=== PATIENT | female | born 1995 | race American Indian/Alaskan Native ===

== ENCOUNTER 2018-04-25 08:41 | Inpatient (IN) | payer OTHER ==
[2018-04-25 10:18] LABS: Basophils % (Auto) 0.4 % (0.0-1.8); Eosinophils % (Auto) 0.1 % (0.0-4.3); Hematocrit 39.6 % (30.3-42.9); Hemoglobin 13.8 gm/dl (10.1-14.3); Lymphocytes # (Auto) 1.8 K/mm3 (1.2-5.4); Lymphocytes % (Auto) 16.6 % (13.4-35.0); Mean Corpuscular HGB Conc 35 % (30-34); Mean Corpuscular Hemoglobin 29 pg (28-32); Mean Corpuscular Volume 82 fl (79-97); Monocytes # (Auto) 0.7 K/mm3 (0.0-0.8); Monocytes % (Auto) 6.7 % (0.0-7.3); Platelet Count 349 K/mm3 (140-440); Red Blood Count 4.85 M/mm3 (3.65-5.03); Red Cell Distribution Width 13.7 % (13.2-15.2)
[2018-04-25 10:24] LABS: Bacteria,Urine 1+ /HPF (Negative); Bilirubin,Urine NEG (Negative); Blood,Urine SM (Negative); Color,Urine Amber (Yellow); Mucus,Urine 3+ /HPF; Urobilinogen,Urine < 2.0 mg/dL (<2.0)
[2018-04-25] MEDS ORDERED: PROTONIX IV ONE (10:40)
[2018-04-25] MEDS ORDERED: MORPHINE IV ONE (10:40)
[2018-04-25] MEDS ORDERED: ZOFRAN IV ONE ×2 (10:40→12:19)
--- NOTE | 2018-04-25 10:44 | Emergency Department Report ---
Blank Doc - Documentation Documentation: 22-year-old female currently 12 weeks presents to the hospital complaining of vomiting and epigastric pain. Patient has had problems with intermittent nausea vomiting for the past 2 months. She has had 3 visits to [facility] including yesterday. She is taking Zofran ODT without improvement. She has yet to initiate care. She did have a ultrasound performed at [facility] confirming IUP. No complaints of fever, dysuria, vaginal bleeding, or diarrhea. Focus Exam Epigastric tenderness Coffee-ground emesis noted labs pending IV, D5 NS, zofran, morphine, protonix Midlevel to follow
[2018-04-25 10:48] LABS: Alanine Aminotransferase 23 units/L (7-56); Albumin 3.9 g/dL (3.9-5); BUN/Creatinine Ratio 15; Blood Urea Nitrogen 9 mg/dL (7-17); Hemolysis Index 9; Lipase 64 units/L (13-60)
[2018-04-25] MEDS ORDERED: D5NS 1,000 ML IV SCH ×2 (11:00→14:00)
--- NOTE | 2018-04-25 11:18 | Emergency Department Report ---
ED N/V/D HPI - General Chief complaint: Nausea/Vomiting/Diarrhea Stated complaint: VOMITING Time Seen by Provider: 04/25/18 10:34 Source: patient Mode of arrival: Ambulatory Limitations: No Limitations - History of Present Illness Initial comments: This is a 22-year-old female nontoxic, well nourished in appearance, no acute signs of distress presents to the ED with c/o of nausea and vomiting x2 months. Patient stated that she lost about 35 pounds due to this. Patient stated that when she vomits she develops epigastric pain and is relieved with hunching over. Patient stated she went to [facility] 3 times and has been sent home with Zofran with no relief. Patient stated she was in [facility] yesterday and had normal US IUP report. Patient denies following up with a RESEARCH PROJECT COORDINATOR doctor. Patient denies any abdominal pain, chest pain, back pain, shortness of breathe, headache, stiff neck, dizziness, or urinary symptoms. Patient denies any vaginal bleeding. Patient denies any allergies or PMH. MD complaint: nausea, vomiting -: month(s) (2) Description of Vomiting: other (Coffee-ground emesis) Associated Abdominal Pain: No Radiation: none Pain Scale: 0 Consistency: constant Improves with: none Worsens with: none Associated Symptoms: nausea/vomiting. denies: myalgias, chest pain, cough, diaphoresis, fever/chills, headaches, loss of appetite, malaise, rash, dysuria, shortness of breath, syncope, weakness - Related Data Home Medications Medication Instructions Recorded Confirmed Last Taken Ondansetron [Zofran Odt] 4 mg PO Q8HR 04/25/18 04/25/18 04/24/18 Vit No.130/Iron/Folic 1 each PO DAILY 04/25/18 04/25/18 04/24/18 [ Tablet] Allergies Allergy/AdvReac Type Severity Reaction Status Date / Time No Known Allergies Allergy Verified 04/25/18 11:11 ED Review of Systems ROS: Stated complaint: VOMITING Other details as noted in HPI Constitutional: denies: chills, fever Eyes: denies: eye pain, eye discharge, vision change ENT: denies: ear pain, throat pain Respiratory: denies: cough, shortness of breath, wheezing Cardiovascular: denies: chest pain, palpitations Endocrine: no symptoms reported Gastrointestinal: nausea, vomiting. denies: abdominal pain, diarrhea Genitourinary: denies: urgency, dysuria, discharge Musculoskeletal: denies: back pain, joint swelling, arthralgia Skin: denies: rash, lesions Neurological: denies: headache, weakness, paresthesias Psychiatric: denies: anxiety, depression Hematological/Lymphatic: denies: easy bleeding, easy bruising ED Past Medical Hx - Past Medical History Previous Medical History?: Yes Additional medical history: Vaginal delivery x 1 - Surgical History Past Surgical History?: No - Social History Smoking Status: Never Smoker Substance Use Type: Prescribed - Medications Home Medications: Home Medications Medication Instructions Recorded Confirmed Last Taken Type Ondansetron [Zofran Odt] 4 mg PO Q8HR 04/25/18 04/25/18 04/24/18 History Vit No.130/Iron/Folic 1 each PO DAILY 04/25/18 04/25/18 04/24/18 History [ Tablet] ED Physical Exam - General Limitations: No Limitations General appearance: alert, in no apparent distress - Head Head exam: Present: atraumatic, normocephalic - Eye Eye exam: Present: normal appearance Pupils: Present: normal accommodation - ENT ENT exam: Present: normal exam, mucous membranes moist - Neck Neck exam: Present: normal inspection, full ROM - Respiratory Respiratory exam: Present: normal lung sounds bilaterally. Absent: respiratory distress, wheezes, rales, rhonchi, stridor, chest wall tenderness, accessory muscle use, decreased breath sounds, prolonged expiratory - Cardiovascular Cardiovascular Exam: Present: regular rate, normal rhythm, normal heart sounds. Absent: bradycardia, tachycardia, irregular rhythm, systolic murmur, diastolic murmur, rubs, gallop - GI/Abdominal GI/Abdominal exam: Present: soft, normal bowel sounds. Absent: distended, tenderness, guarding, rebound, rigid, diminished bowel sounds - Rectal Rectal exam: Present: deferred - Extremities Exam Extremities exam: Present: normal inspection, full ROM, normal capillary refill - Back Exam Back exam: Present: normal inspection, full ROM. Absent: tenderness, CVA tenderness (R), CVA tenderness (L), muscle spasm, paraspinal tenderness, vertebral tenderness, rash noted - Neurological Exam Neurological exam: Present: alert, oriented X3, normal gait - Psychiatric Psychiatric exam: Present: normal affect, normal mood - Skin Skin exam: Present: warm, dry, intact, normal color. Absent: rash ED Course Vital Signs 04/25/18 04/25/18 04/25/18 09:30 11:12 16:27 Temperature 97.5 F L Pulse Rate 60 57 L Respiratory 22 20 16 Rate Blood Pressure 138/84 Blood Pressure 145/82 [Left] O2 Sat by Pulse 100 96 Oximetry - Reevaluation(s) Reevaluation #1: 04/25/18 11:18 Patient is speaking in full sentences with no signs of distress noted. - Consultations Consultation #1: 04/25/18 11:18 Patient has been consulted with Dr. Whaley about patient history, physical exam, and labs and examined and screened patient and agrees to ED plan of care. Consultation #2: 04/25/18 13:36 Dr. Mullins from [facility] was consulted and accepts patient to her services. ED Medical Decision Making - Lab Data Result diagrams: 04/25/18 09:52 04/25/18 09:52 - Medical Decision Making This is a 22-year-old female that presents with hyperemesis . Patient is stable was examined by me. Upon examination there is no abdominal tenderness or abdominal distention. Patient received 2 L of D5W w NS and Zofran and reglan which symptoms has not resolved. Patient also received K+ 20 meq IV. Patient is admitted with [facility] for further evaluation and treatment. . At time of admission, the patient does not seem toxic or ill in appearance. No acute signs of distress noted. Patient agrees to admission treatment plan of care. No further questions noted by the patient. Critical care attestation.: If time is entered above; I have spent that time in minutes in the direct care of this critically ill patient, excluding procedure time. ED Disposition Clinical Impression: Hyperemesis gravidarum Disposition: OP ADMIT IP TO THIS HOSP Is pt being admited?: Yes Condition: Stable Referrals: PRIMARY CARE, [Primary Care Provider] - 3-5 Days
[2018-04-25] MEDS ORDERED: REGLAN IV ONE (12:19)
[2018-04-25] MEDS ORDERED: PHENERGAN PR ONE (13:39)
[2018-04-25] MEDS ORDERED: ROCEPHIN/NS 1 GM/50 ML 1 GM/50 ML BAG IV ONE (13:41)
[2018-04-25] MEDS ORDERED: cefTRIAXone 1 GM in NACL 0.9% 20 ML IV ONE (14:00)
--- NOTE | 2018-04-25 14:44 | Ultrasound Report ---
ULTRASOUND OB LESS THAN 14 WEEKS - TRANSABDOMINAL INDICATION: Nausea, vomiting. Evaluate for IUP. COMPARISON: None similar at this institution. FINDINGS: Transabdominal pelvic sonography performed in this patient with estimated menstrual age of 11 weeks and 6 days per recent ultrasound performed at [facility]. It demonstrates an anteverted, gravid uterus estimated at 14 x 7.3 x 9.2 cm with a single, viable intrauterine gestation with heart rate of 155 beats per minute. Mean crown-rump length of 6.6 cm corresponds to 12 weeks and 6 days. Placenta appears anterior. body/limb movements noted on real-time imaging. No significant pelvic free fluid. Cervical length approximately 2.5 cm, closed. Normal bilateral maternal ovaries, approximately 2.3 x 1.5 x 1.2 cm on the right and 2.4 x 1.3 x 2.8 cm on the left. CONCLUSION: 1. Single, live intrauterine gestation with an ultrasound estimated age of 12 weeks and 6 days and SHAN of 11/01/2018. 2. Other findings, as above. Thank you for the opportunity to participate in this patient's care.
[2018-04-25] MEDS ORDERED: NACL 0.9% 250ML 250 ML ONE ×3 (15:33→18:05)
[2018-04-25] MEDS: KCL 10MEQ/100ML 10 MEQ/100 ML BAG IV SCH ×2 (15:57→17:38)
[2018-04-25] MEDS ORDERED: NACL 0.9% 250ML 250 ML IV ONE ×2 (17:00→17:40)
[2018-04-25] MEDS ORDERED: PEPCID IV ONE (19:34)
[2018-04-25] MEDS ORDERED: LIDOCAINE VISCOUS 2% PO ONE (19:42)
[2018-04-25] MEDS ORDERED: D5LR 1,000 ML IV SCH (21:18)
[2018-04-25] MEDS ORDERED: ZOFRAN IV PRN (21:18)
--- NOTE | 2018-04-25 22:01 | History and Physical Report ---
History of Present Illness Date of examination: 04/25/18 Date of admission: 04/25/18 19:50 Chief complaint: N/V unresponsive to outpatient management No care History of present illness: This is a 22year-old female IUP@12 weeks with persistent nausea/vomiting for 2months. She been evaluated [place] [facility] [place] times but has not any care. According to ED patient had persistent vomiting after several antiemetic regimens. Past History Past Medical History: no pertinent history Past Surgical History: no surgical history BAR STAFF History: other (states she was treated for and STD at [facility] she does not know what std was has or what medication was given) - Obstetrical History Expected Date of Delivery: 11/01/18 Actual Gestation: 12 Week(s) 6 Day(s) : 2 Para: 1 Hx # Term Pregnancies: 1 Number of Living Children: 1 #1 Infant Gender: Female Method of Delivery: Vaginal (poor historian, thinks the last was complicated by IUGR, she delivered in [place]) Medications and Allergies Allergies Allergy/AdvReac Type Severity Reaction Status Date / Time No Known Allergies Allergy Verified 04/25/18 11:11 Home Medications Medication Instructions Recorded Confirmed Last Taken Type Ondansetron [Zofran Odt] 4 mg PO Q8HR 04/25/18 04/25/18 04/24/18 History Vit No.130/Iron/Folic 1 each PO DAILY 04/25/18 04/25/18 04/24/18 History [ Tablet] Active Meds: Active Medications Dextrose/Lactated Ringer's (D5lr) 1,000 mls @ 500 mls/hr IV DIRECT GENE Stop: 04/26/18 23:17 Dextrose/Lactated Ringer's (D5lr) 1,000 mls @ 150 mls/hr IV DIRECT GENE Potassium Chloride (Kcl 10meq/100ml) 10 meq in 100 mls @ 100 mls/hr IV Q1H GENE Stop: 04/26/18 00:17 Metoclopramide HCl (Reglan) 10 mg IV Q6H GENE Multivitamins/Iron/Calcium ( Vitamin) 1 each PO QDAY GENE Ondansetron HCl (Zofran) 4 mg IV Q6H PRN PRN Reason: N/V unrelieved by Reglan Promethazine HCl (Phenergan) 25 mg LA Q6H GENE Review of Systems All systems: negative Gastrointestinal: nausea, vomiting - Vital Signs Vital signs: Vital Signs Temp Pulse Resp BP Pulse Ox 97.5 F L 60 22 138/84 100 04/25/18 09:30 04/25/18 09:30 04/25/18 09:30 04/25/18 09:30 04/25/18 09:30 Temp Pulse Resp BP Pulse Ox 97.6 F 56 L 16 128/78 100 04/25/18 19:57 04/25/18 19:57 04/25/18 19:57 04/25/18 19:57 04/25/18 19:57 Results Result Diagrams: 04/25/18 09:52 04/25/18 09:52 Abnormal lab results 04/25/18 04/25/18 04/25/18 Range/Units 09:49 09:52 09:52 MCHC 35 H (30-34) % Seg Neutrophils % 76.2 H (40.0-70.0) % Seg Neutrophils # 8.3 H (1.8-7.7) K/mm3 Potassium 3.2 L (3.6-5.0) mmol/L Carbon Dioxide 17 L (22-30) mmol/L Creatinine 0.6 L (0.7-1.2) mg/dL Lipase 64 H (13-60) units/L Urine WBC (Auto) 7.0 H (0.0-6.0) /HPF All other labs normal. Ultrasound: report reviewed Assessment and Plan - Patient Problems (1) 12 weeks gestation of Current Visit: Yes Status: Acute (2) Hyperemesis gravidarum Current Visit: Yes Status: Acute Plan to address problem: hyperemesis protocol pathway (3) No care in current in first trimester Current Visit: Yes Status: Acute Plan to address problem: Instructed to call her insurance company to obtain names of OB's in the area who are on her plan and to call immediately to establish care. She was informed she cannot receive care thru the hospital. She needs to go to a doctor' s office (4) Hypokalemia Current Visit: Yes Status: Acute Plan to address problem: received 20meq KCL in ED, will proceed with an addn'l 30meq now, recheck in am
[2018-04-25 22:49] LABS: BUN/Creatinine Ratio 12; Blood Urea Nitrogen 6 mg/dL (7-17); Calcium 8.8 mg/dL (8.4-10.2); Hemolysis Index 5
[2018-04-25] MEDS: REGLAN IV SCH (22:54)
[2018-04-25] MEDS: D5LR 1,000 ML IV SCH (22:54)
[2018-04-25] MEDS ORDERED: TYLENOL PO ONE (23:25)
[2018-04-26] MEDS: PEPCID PO SCH ×2 (00:07→12:19)
[2018-04-26] MEDS: KCL 10MEQ/100ML 10 MEQ/100 ML BAG IV SCH ×3 (01:00→05:15)
[2018-04-26] MEDS: D5LR 1,000 ML IV SCH (01:00)
[2018-04-26 01:35] LABS: Bacteria,Urine 2+ /HPF (Negative); Bilirubin,Urine NEG (Negative); Blood,Urine SM (Negative); Color,Urine Yellow (Yellow); Mucus,Urine FEW /HPF; Protein,Urine <15 mg/dL mg/dL (Negative); Urobilinogen,Urine < 2.0 mg/dL (<2.0)
[2018-04-26] MEDS: PHENERGAN PR SCH ×2 (03:02→10:28)
[2018-04-26] MEDS: REGLAN IV SCH ×2 (05:14→12:15)
--- NOTE | 2018-04-26 09:29 | Progress Note ---
Assessment and Plan - Patient Problems (1) Hyperemesis gravidarum Current Visit: Yes Status: Acute Plan to address problem: Patient is tolerating her diet of present without any vomiting. Waiting results of her potassium level with plans to go home and he emetics today in stable and patient states she will find an rolling down machine operator to follow up with. (2) Hypokalemia Current Visit: Yes Status: Acute Plan to address problem: Patient received potassium this morning we'll order a potassium level and recheck Subjective Date of service: 04/26/18 Principal diagnosis: hyperemesis and hypokalemia Interval history: Patient denies any recent vomiting. Objective - Constitutional Vitals: Vital Signs - 12hr 04/26/18 01:57 Temperature 98.9 F Pulse Rate 66 Respiratory 18 Rate Blood Pressure 105/61 [Left] General appearance: Present: no acute distress - Respiratory Respiratory effort: normal - Breasts Breasts: deferred - Cardiovascular Rhythm: regular Extremities: no ischemia, No edema - Gastrointestinal General gastrointestinal: Present: soft, non-tender Rectal Exam: deferred - Genitourinary Female genitourinary: deferred - Integumentary Integumentary: clear, warm, dry - Neurologic Neurologic: no focal deficits, moves all extremities - Labs CBC & Chem 7: 04/25/18 09:52 04/26/18 07:42 Labs: Abnormal lab results 04/25/18 04/25/18 04/25/18 Range/Units 09:49 09:52 09:52 MCHC 35 H (30-34) % Seg Neutrophils % 76.2 H (40.0-70.0) % Seg Neutrophils # 8.3 H (1.8-7.7) K/mm3 Potassium 3.2 L (3.6-5.0) mmol/L Carbon Dioxide 17 L (22-30) mmol/L BUN (7-17) mg/dL Creatinine 0.6 L (0.7-1.2) mg/dL Lipase 64 H (13-60) units/L Urine WBC (Auto) 7.0 H (0.0-6.0) /HPF 04/25/18 04/25/18 Range/Units 22:12 23:10 MCHC (30-34) % Seg Neutrophils % (40.0-70.0) % Seg Neutrophils # (1.8-7.7) K/mm3 Potassium 3.4 L (3.6-5.0) mmol/L Carbon Dioxide 20 L (22-30) mmol/L BUN 6 L (7-17) mg/dL Creatinine 0.5 L (0.7-1.2) mg/dL Lipase (13-60) units/L Urine WBC (Auto) 11.0 H (0.0-6.0) /HPF
[2018-04-26] MEDS ORDERED: PRENATAL VITAMIN PO SCH (10:00)
[2018-04-26 17:25] VITALS: BP 103/56
--- NOTE | 2018-04-26 19:25 | Short Stay Summary ---
Short Stay Documentation Date of service: 04/26/18 - History H&P: dictated - Allergies and Medications Current Medications: Allergies No Known Allergies Allergy (Verified 04/25/18 11:11) Home Medications Medication Instructions Recorded Confirmed Last Taken Type Ondansetron [Zofran Odt] 4 mg PO Q8HR 04/25/18 04/25/18 04/24/18 History Vit No.130/Iron/Folic 1 each PO DAILY 04/25/18 04/25/18 04/24/18 History [ Tablet] Metoclopramide [Reglan] 10 mg PO Q6H PRN #24 tab 04/26/18 Unknown Rx - Physical exam Breasts: deferred Extremities: no ischemia, No edema - Hospital course Hospital course: She was admitted and started on hyperemesis pathway. Patient did have decreased vomiting during the stay. Patient also had hypokalemia improved with potassium supplements. The morning of discharge potassium level of 3.9 and order repeat lab value was 3.2. Patient desires discharge states that she feels much better and her plan is to find a tax record clerk to follow with. - Disposition Condition at discharge: Stable Disposition: DC-01 TO HOME OR SELFCARE - Discharge Diagnoses (1) Hyperemesis gravidarum Status: Resolved (2) Hypokalemia Status: Resolved Short Stay Discharge Plan Activity: advance as tolerated Diet: advance as tolerated Additional Instructions: Patient instructed to call for fever and chills nausea vomiting uncontrolled by medication. Patient did state she is going to try to find an tax record clerk since her insurance. I did give patient for office for the patient to call. Follow up with: PRIMARY CARE, [Primary Care Provider] - 3-5 Days Forms: [id number] Discharge Summary Prescriptions: Metoclopramide [Reglan] 10 mg PO Q6H PRN #24 tab PRN Reason: Nausea And Vomiting
== END 2018-04-26 18:55 | disposition home or self-care (01) | DRG 781 ==
LOC: ED 08:41 → OB 19:50
PROVIDERS: ADMIT Obstetrics & Gynecology; ATTEND Obstetrics & Gynecology
DX: O21.1 Hyperemesis gravidarum with metabolic disturbance (principal); O09.31 Supervision of pregnancy with insufficient antenatal care, first trimester; Z3A.12 12 weeks gestation of pregnancy
CPT/HCPCS: 36415; 76801; 80048; 80053; 81001; 83690; 84132; 85025; 96361; 96365; 96375; 96376; C9113; J0696; J2270; J2405; J2765; J3480; J7042; J7050; J7121

== ENCOUNTER 2018-08-21 00:25 | Outpatient (CLI) | payer OTHER ==
[2018-08-21] MEDS ORDERED: LACTATED RINGERS 500 ML IV ONE (01:34)
[2018-08-21 03:29] LABS: Bilirubin,Urine NEG (Negative); Blood,Urine NEG (Negative); Color,Urine Yellow (Yellow); Hyaline Casts,Urine 1 /LPF; Mucus,Urine FEW /HPF
== END 2018-08-21 03:48 | disposition home or self-care (01) ==
LOC: TRG 00:25
PROVIDERS: ATTEND Obstetrics & Gynecology
DX: O26.893 Other specified pregnancy related conditions, third trimester (principal); R10.30 Lower abdominal pain, unspecified; Z3A.28 28 weeks gestation of pregnancy; M54.9 Dorsalgia, unspecified
CPT/HCPCS: 81001